=== PATIENT | male | born 1980 | race Caucasian/White ===

== ENCOUNTER 2018-05-22 16:58 | Emergency (ER) | payer MEDICAID ==
[2018-05-22 17:18] VITALS: BP 124/79; PULSE 84; RESP 16; TEMP 98.1; O2SAT 98
[2018-05-22] MEDS ORDERED: Neomycin/Polymyxin/Hydrocort Otic Soln BOTTLE AU STA (17:38)
[2018-05-22] MEDS ORDERED: Amoxicillin-Clav 875-125 mg Tab PO STA (17:40)
--- NOTE | 2018-05-22 17:47 | C.PDOC ---
History Of Present Illness 37 year old male presents to ED complaining of left ear pain, contrary to triage. Patient reports he was seen at another ER for the same issue and was prescribes Meclazine and Claritin. Denies fever, chills, headache, nausea, vomiting. Chief Complaint (Nursing): ENT Problem History Per: Patient History/Exam Limitations: None Onset/Duration Of Symptoms: Days Current Symptoms Are (Timing): Still Present Past Medical History Reviewed: Historical Data, Nursing Documentation, Vital Signs Vital Signs: Last Vital Signs Temp 98.1 F 05/22/18 17:16 Pulse 84 05/22/18 17:16 Resp 16 05/22/18 17:16 BP 124/79 05/22/18 17:16 Pulse Ox 98 05/22/18 17:48 Surgical History: No Surg Hx Family History: States: No Known Family Hx - Social History Hx Alcohol Use: Yes Hx Substance Use: No Review Of Systems Except As Marked, All Systems Reviewed And Found Negative. Constitutional: Negative for: Fever, Chills Gastrointestinal: Negative for: Nausea, Vomiting Neurological: Negative for: Headache Physical Exam - Physical Exam Appears: Non-toxic, No Acute Distress Skin: Warm, Dry Head: Atraumatic, Normacephalic Eye(s): bilateral: Normal Inspection Ear(s): Left: Other (Otitis externa, otitis media. Red, swollen tympanic membrane with patches on external canal. Canal is swollen with discharge. No mastoid tenderness.), Right: Normal Neurological/Psych: Oriented x3, Normal Speech, Normal Cognition Gait: Steady ED Course And Treatment O2 Sat by Pulse Oximetry: 98 (RA) Pulse Ox Interpretation: Normal Progress Note: Plan: Labs, augmentin, and cortisporin ordered and reviewed. Referred patient to an ENT specialist. Disposition - Disposition Referrals: Cristóbal Fabian MD [Staff Provider] - Disposition: HOME/ ROUTINE Disposition Time: 17:40 Condition: STABLE Additional Instructions: Follow up with ENT specialist within 1-2 days. Return to ED if feel worse. Prescriptions: Amoxicillin/Clavulanate [Augmentin 875 MG-125 MG] 1 tab PO BID #20 tab Ciprofloxacin/Dexamethasone [Ciprodex 0.3%-0.1% 7.5 Ml] 4 drop OT BID #1 bottle Instructions: Ear Infections (Otitis Media) Forms: [employer] (Maltese) - Clinical Impression Clinical Impression: Otitis - PA / [employer] / Resident Statement MD/DO has reviewed & agrees with the documentation as recorded. - Scribe Statement The provider has reviewed the documentation as recorded by the Scribe Trey Marie All medical record entries made by the Tajibe were at my direction and personally dictated by me. I have reviewed the chart and agree that the record accurately reflects my personal performance of the history, physical exam, medical decision making, and the department course for this patient. I have also personally directed, reviewed, and agree with the discharge instructions and disposition.
[2018-05-22] MEDS ORDERED: Amoxicillin-Clav 875-125 mg Tab PO ONE (17:51)
== END 2018-05-22 18:07 | disposition home or self-care (01) ==
LOC: C.ER 16:58
DX: H66.90 Otitis media, unspecified, unspecified ear (principal)